=== PATIENT | female | born 1970 | race Caucasian/White ===

== ENCOUNTER 2024-04-14 15:15 | Outpatient (CLI) | payer OTHER | END 2024-04-14 15:16 | disposition home or self-care (01) | LOC: CSHMRI 15:15 | PROVIDERS: ATTEND Internal Medicine | DX: M50.322 Other cervical disc degeneration at C5-C6 level (principal); M50.323 Other cervical disc degeneration at C6-C7 level; M47.26 Other spondylosis with radiculopathy, lumbar region; M47.27 Other spondylosis with radiculopathy, lumbosacral region | CPT/HCPCS: 72141; 72148 ==

== ENCOUNTER 2024-06-09 12:38 | Outpatient (CLI) | payer OTHER | END 2024-06-09 12:39 | disposition home or self-care (01) | LOC: CSHMRI 12:38 | PROVIDERS: ATTEND Specialist | DX: M47.26 Other spondylosis with radiculopathy, lumbar region (principal); M48.07 Spinal stenosis, lumbosacral region; E27.8 Other specified disorders of adrenal gland | CPT/HCPCS: 72148 ==